=== PATIENT | female | born 1985 | race Caucasian/White ===

== ENCOUNTER 2017-02-13 12:06 | Emergency (ER) | payer MEDICAID ==
[~2017-02-13] VITALS: Ht 167.6 cm; Wt 84.8 kg
[2017-02-13 12:40] VITALS: BP 108/74
--- NOTE | 2017-02-13 13:05 | NUR ---
31 F BIB SIGNIFICANT OTHER WITH C/O 05/20 "DULL" NON RADIATING LEFT KNEE PAIN X 2 WKS; PT STS SHE WAS DOING SQUATS WHEN PAIN STARTED; PT DENIES ANY NUMBNESS OR TINGLING TO LUE; CMS INTACT; PT DENIES ANY OTHER INJURIES; PT IS AOX4, RR ARE EVEN AND UNLABORED. NAD.
[2017-02-13 13:22] VITALS: BP 110/75
== END 2017-02-13 13:21 | disposition home or self-care (01) ==
LOC: MED 12:06
DX: S83.92XA Sprain of unspecified site of left knee, initial encounter (principal); X58.XXXA Exposure to other specified factors, initial encounter; Y93.89 Activity, other specified; Y92.89 Other specified places as the place of occurrence of the external cause; Y99.8 Other external cause status
CPT/HCPCS: 73562; 99284; Q0092

== ENCOUNTER 2017-05-06 14:32 | Emergency (ER) | payer MEDICAID ==
[~2017-05-06] VITALS: Ht 162.6 cm; Wt 84.4 kg
[2017-05-06 14:34] VITALS: BP 117/78
--- NOTE | 2017-05-06 14:39 | NUR ---
PATIENT PRESENTS TO ED WITH RIGHT FLANK PAIN X1 WEEK AGO RADIATING TO RUQ HX KIDNEY INFECTION; DENIES N/V/D; SKIN IS PINK/WARM/DRY; AAOX4 WITH EVEN AND STEADY GAIT; LUNGS CLEAR BL; HR EVEN AND REGULAR; PT DENIES ANY FEVER, CP, SOB, OR COUGH AT THIS TIME; PATIENT STATES PAIN OF 10/10 AT THIS TIME; VSS; PATIENT POSITIONED FOR COMFORT; HOB ELEVATED; BEDRAILS UP X2; BED DOWN. ER MD MADE AWARE OF PT STATUS.
--- NOTE | 2017-05-06 14:42 | NUR ---
PT AMBULATES TO BED 12
--- NOTE | 2017-05-06 14:53 | NUR ---
DR LUU EVALUATING AAO PT AT BEDSIDE
[2017-05-06] MEDS ORDERED: KETOROLAC 60 MG/2 ML VIAL IM ONE (15:00)
[2017-05-06 15:49] VITALS: BP 121/81
--- NOTE | 2017-05-06 15:49 | NUR ---
Patient discharged with v/s stable. Written and verbal after care instructions given and explained. Patient alert, oriented and verbalized understanding of instructions. Ambulatory with steady gait. All questions addressed prior to discharge. ID band removed. Patient advised to follow up with PMD. Rx of norco, motrin given. Patient educated on indication of medication including possible reaction and side effects. Opportunity to ask questions provided and answered.
== END 2017-05-06 15:49 | disposition home or self-care (01) ==
LOC: MED 14:32
DX: R10.11 Right upper quadrant pain (principal)
CPT/HCPCS: 81002; 81025; 96372; 99283; J1885

== ENCOUNTER 2017-09-19 13:33 | Emergency (ER) | payer MEDICAID ==
[~2017-09-19] VITALS: Ht 167.6 cm; Wt 83.0 kg
[2017-09-19 13:40] VITALS: BP 118/77
--- NOTE | 2017-09-19 14:18 | NUR ---
PT C/O DIZZINESS X 3 DAYS, WITH N/V SINCE THIS MORNING. PT REPORTS DRINKING ALCOHOL LAST NIGHT. NOTICED BRUISING TO BILAT LEGS THIS MORNING. DENIES INJURY. 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 PT STATES DIZZINESS IS LESS SEVERE WHEN LAYING ONHER LEFT SIDE. DENIES PAIN, SOB OR CP. PLACED PT ON ALL MONITORS, VSS. PENDING MD DAMON
[2017-09-19 15:04] LABS: BASOPHILS # (AUTO) 0.1 K/uL (0.00-0.22); BASOPHILS % (AUTO) 0.8 % (0.0-2.0); EOSINOPHILS % (AUTO) 0.2 % (0.0-4.0); HEMATOCRIT 38.4 % (36-48); HEMOGLOBIN 12.2 g/dL (12.0-16.0); LYMPHOCYTES # (AUTO) 1.8 K/uL (2.5-16.5); LYMPHOCYTES % (AUTO) 25.2 % (20.5-51.1); MEAN CORPUSCULAR HEMOGLOBIN 26 pg (27-31); MEAN CORPUSCULAR HGB CONC 32 g/dL (33-37); MEAN CORPUSCULAR VOLUME 81.3 fL (80-94); MONOCYTES # (AUTO) 0.3 K/uL (0.8-1.0); MONOCYTES % (AUTO) 4.4 % (1.7-9.3); NEUTROPHILS # (AUTO) 5.1 K/uL (1.8-7.7); NEUTROPHILS % (AUTO) 69.4 % (42.2-75.2); PLATELET COUNT (AUTO) 363 K/uL (140-450); RED BLOOD CELL COUNT(AUTO) 4.73 MIL/uL (4.20-5.40); RED CELL DISTRIBUTION WIDTH 15.9 % (11.6-13.7); WHITE BLOOD COUNT (AUTO) 7.3 K/uL (4.8-10.8)
[2017-09-19] MEDS ORDERED: ONDANSETRON 4 MG ODT PO ONE (15:55)
[2017-09-19] MEDS ORDERED: MECLIZINE 25 MG TAB PO ONE (15:55)
[2017-09-19 16:46] VITALS: BP 122/75
--- NOTE | 2017-09-19 16:47 | NUR ---
Patient discharged with v/s stable. Written and verbal after care instructions given and explained. Patient alert, oriented and verbalized understanding of instructions. Ambulatory with steady gait. All questions addressed prior to discharge. ID band removed. Patient advised to follow up with PMD. Rx of ZOFRAN, MECLIZINE given. Patient educated on indication of medication including possible reaction and side effects. Opportunity to ask questions provided and answered.
== END 2017-09-19 16:47 | disposition home or self-care (01) ==
LOC: MED 13:33
DX: R42 Dizziness and giddiness (principal); I10 Essential (primary) hypertension
CPT/HCPCS: 36415; 81025; 85025; 99283; J8597; S0119

== ENCOUNTER 2019-08-27 15:35 | Emergency (ER) | payer MEDICAID ==
[~2019-08-27] VITALS: Ht 162.6 cm; Wt 90.7 kg
[2019-08-27 15:58] VITALS: BP 113/104
--- NOTE | 2019-08-27 16:08 | NUR ---
WAIT AT LOBBY. HANDED ON URINE CUP.
--- NOTE | 2019-08-27 16:50 | NUR ---
33 Y/O FEMALE BIB SELF C/O RT FLANK PAIN RADIATING TO RT LOWER ABD X 3 DAYS. STATES NAUSEA PROVOKED BY PAIN. 8/10 ACHING PAIN TO FLANK. INCREASED URINATION, NO PAINFUL URINATION. DENIES HEMATURIA. VSS
--- NOTE | 2019-08-27 17:10 | NUR ---
Patient discharged with v/s stable. Written and verbal after care instructions given and explained. Patient alert, oriented and verbalized understanding of instructions. Ambulatory with steady gait. All questions addressed prior to discharge. ID band removed. Patient advised to follow up with PMD. Rx of ZOFRAN 4MG, BACTRIM 800MG, AND NAPROSYN 325MG given. Patient educated on indication of medication including possible reaction and side effects. Opportunity to ask questions provided and answered.
[2019-08-27 17:11] VITALS: BP 113/104
[2019-08-27 18:47] LABS: BILIRUBIN,URINE NEGATIVE (NEGATIVE); BLOOD, URINE 2+ (NEGATIVE); COLOR,URINE YELLOW (YELLOW); LEUKOCYTE ESTERASE ,URINE TRACE (NEGATIVE); NITRITE, URINE NEGATIVE (NEGATIVE); PH,URINE 5.5 (5.0-9.0); UGLUCOSE NEGATIVE (NEGATIVE)
[2019-08-27 18:54] LABS: APPEARANCE,URINE HAZY (CLEAR)
[2019-08-27 19:42] LABS: WBC,URINE 20-60 /HPF (0-5)
== END 2019-08-27 17:10 | disposition home or self-care (01) ==
LOC: MED 15:35
DX: N12 Tubulo-interstitial nephritis, not specified as acute or chronic (principal); I10 Essential (primary) hypertension; R03.0 Elevated blood-pressure reading, without diagnosis of hypertension
CPT/HCPCS: 81001; 81025; 87086; 87186; 99283

== ENCOUNTER 2022-08-17 18:48 | Emergency (ER) | payer MEDICAID ==
[~2022-08-17] VITALS: Ht 162.6 cm; Wt 85.7 kg
[2022-08-17 18:49] VITALS: BP 132/84
--- NOTE | 2022-08-17 19:25 | NUR ---
seen and examined by Momo
[2022-08-17] MEDS ORDERED: IBUP-2213 PO (19:36)
[2022-08-17 19:58] VITALS: BP 132/84
--- NOTE | 2022-08-17 19:58 | NUR ---
FIRST CONTACT WITH PT FOR DC ONLY. PT A&OX4, RR EVEN AND UNLABORED. NO S/S OF DISTRESS NOTED.
== END 2022-08-17 19:58 | disposition home or self-care (01) ==
LOC: MED 18:48
DX: M26.602 Left temporomandibular joint disorder, unspecified (principal); H92.02 Otalgia, left ear; I10 Essential (primary) hypertension; Z79.899 Other long term (current) drug therapy
CPT/HCPCS: 99282